=== PATIENT | female | born 1965 | race Hispanic/Latino ===

== ENCOUNTER → 2018-12-02 | Outpatient (CLI) | payer SELFPAY ==
[2018-12-02 11:03] LABS: INR 0.98 (0.85-1.15); PROTHROMBIN TIME 10.3 SEC (9.6-11.6)
--- NOTE | 2018-12-02 11:10 | NUR ---
US GUIDED BIOPSY RIGHT THYROID PROCEDURE PERFORMED BY DR. LUIS. PUNCTURE SITE TO THE ANTERIOR RIGHT SIDE OF NECK. PATIENT TOLERATED PROCEDURE WELL. SPECIMEN X 4 COLLECTED BY [employer]. END OF PROCEDURE AT 1120. BIOPSY NEEDLE REMOVED AND DRESSING APPLIED. NO BLEEDING NOTED. DISCHARGE INSTRUCTIONS GIVEN TO PATIENT AND VERBALIZED UNDERSTANDING. DISCHARGED AMBULATORY. AAO X 3, STABLE, NO C/O PAIN.
== END | disposition home or self-care (01) ==
LOC: RAH 09:50
PROVIDERS: ATTEND Nurse Practitioner Family
DX: E04.1 Nontoxic single thyroid nodule (principal); Z79.899 Other long term (current) drug therapy; Z98.890 Other specified postprocedural states; Z79.01 Long term (current) use of anticoagulants
CPT/HCPCS: 36415; 60100; 76942; 85610; 85730; 88305 ×2; 88333; 88334; A4215; 88173

== ENCOUNTER → 2019-02-18 | Outpatient (CLI) | payer SELFPAY | END | disposition home or self-care (01) | LOC: RAH 09:53 → EDSTATUS 10:30 | PROVIDERS: ATTEND Internal Medicine | DX: E04.1 Nontoxic single thyroid nodule (principal); E05.90 Thyrotoxicosis, unspecified without thyrotoxic crisis or storm | CPT/HCPCS: 78014; A9516 ==